=== PATIENT | male | born 1950 | race Caucasian/White ===

== ENCOUNTER 2024-03-22 19:44 | Outpatient (REF) | payer MEDICARE, SELFPAY | END 2024-03-22 19:45 | disposition home or self-care (01) | LOC: LBN 19:44 | PROVIDERS: PCP Family Medicine; Visit Provider Otolaryngology | DX: H92.11 Otorrhea, right ear (principal); H71.90 Unspecified cholesteatoma, unspecified ear; H72.821 Total perforations of tympanic membrane, right ear; L40.9 Psoriasis, unspecified | CPT/HCPCS: 87070; 87205 ==